=== PATIENT | female | born 2000 | race Caucasian/White ===

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

== ENCOUNTER 2018-04-11 21:36 | Emergency (ER) | END 2018-04-11 23:25 | disposition home or self-care (01) ==

== ENCOUNTER 2018-12-29 14:55 | Emergency (ER) | payer BC, MEDICAID ==
[~2018-12-29] VITALS: Ht 165.1 cm; Wt 76.0 kg
[~2018-12-29 14:55] MED LIST: HYDR-4011 PO; MAG-19 PO; ONDA4TAB14 PO; RANI150T35 PO
[2018-12-29 15:02] VITALS: BP 109/57; PULSE 100; RESP 16; Ht 165.1 cm; Wt 76.0 kg
[2018-12-29] MEDS ORDERED: ACETAMINOPHEN 500 MG TAB PO STA (15:55)
[2018-12-29] MEDS ORDERED: FLUT9.9S NASAL (15:59)
[2018-12-29] MEDS ORDERED: PSEU60TA2 PO (15:59)
[2018-12-29] MEDS ORDERED: SODI30SP2 NS (15:59)
[2018-12-29] MEDS ORDERED: PSEUDOEPHEDRINE 30 MG TAB PO ONE (16:00)
[2018-12-29] MEDS ORDERED: ACET500C5 PO (16:01)
--- NOTE | 2018-12-29 16:02 | ERD ---
ER Documentation Chief Complaint Chief Complaint COUGH, MYALGIAS, SINUS HEADACHE X1 WEEK HPI This is a 18-year-old female patient who presents to the emergency room with complaint of cough, phlegm, headache x1 week. Patient denies fevers, no nausea or vomiting. Patient does not smoke. No chronic medical problems. History and physical exam and plan of care discussion performed via project drilling engineer services ROS All systems reviewed and are negative except as per history of present illness. Medications Home Meds Active Scripts Acetaminophen* (Tylophen*) 500 Mg Capsule, 2 CAP PO Q8H PRN for PAIN AND OR ELEVATED TEMP, #20 CAP Prov:ROBERTO PAEZ NP 12/29/18 Sodium Chloride (Saline Nasal [place]) 30 Ml [place], 30 ML NS BID for 10 Days, #30 ML Prov:ROBERTO PAEZ NP 12/29/18 Pseudoephedrine Hcl* (Pseudoephedrine Hcl*) 60 Mg Tablet, 60 MG PO Q6 PRN for CONGESTION for 5 Days, TAB Prov:ROBERTO PAEZ NP 12/29/18 Fluticasone Propionate (Flonase Allergy Relief) 9.9 Ml [place].susp, 1 SPRAY NASAL BID for NASAL CONGESTION for 30 Days, #1 BOTTLE TO EACH NOSTRIL Prov:ROBERTO PAEZ NP 12/29/18 Ondansetron (Ondansetron Odt) 4 Mg Tab.rapdis, 4 MG PO Q6H PRN for NAUSEA AND/OR VOMITING, #10 TAB Prov:MOSHE ACEVEDO NP 04/11/18 Hydrocodone/Acetaminophen ([place] 5-325 Tablet) 1 Each Tablet, 1 TAB PO Q6H PRN for SEVERE PAIN LEVEL 7-10, #7 TAB Prov:MOSHE ACEVEDO NP 04/11/18 Ranitidine Hcl* (Zantac*) 150 Mg Tablet, 150 MG PO BID PRN for EPIGASTRIC PAIN, #30 TAB Prov:MOSHE ACEVEDO NP 04/11/18 Magaldrate/Simethicone* (Mylanta*) 355 Ml Susp, 30 ML PO QID PRN for GASTROINTESTINAL UPSET, #1 BOTTLE Prov:MOSHE ACEVEDO NP 04/11/18 Reported Medications [none] Unknown Strength No Conflict Check 04/11/18 Allergies Allergies: Coded Allergies: ibuprofen (Verified Allergy, Unknown, 04/11/18) PMhx/Soc History of Surgery: Yes (APPY) Hx Alcohol Use: No Hx Substance Use: No Hx Tobacco Use: No Smoking Status: Never smoker FmHx Family History: No diabetes, No coronary disease, No other Physical Exam Vitals Vital Signs Date Temp Pulse Resp B/P (MAP) Pulse Ox O2 O2 Flow FiO2 Time Delivery Rate 12/29/18 99.1 100 16 109/57 97 15:02 (74) Physical Exam Const: No acute distress Head: Atraumatic, right maxillary tenderness Eyes: Normal Conjunctiva, PERRL, EOMI ENT: Normal External Ears, TM clear BL, Nose with clear drainage. Pharynx pink, moist, no lesions, no petechiae, no exudate, tonsils +1. Neck: Full range of motion. No meningismus. No lymphadenopathy, no thyromegaly. Resp: Clear to auscultation bilaterally, no wheezing, no rales, no rhonchi. Cardio: Regular rate and rhythm, no murmurs Abd: Soft, non tender, non distended. Normal bowel sounds Skin: No petechiae or rashes Back: No midline or flank tenderness Ext: No cyanosis, or edema Neur: Awake and alert Psych: Normal Mood and Affect Results 24 hrs Current Medications Medications Dose Sig/Vanessa Start Time Status Last (Trade) Ordered Route PRN Stop Time Admin Dose Reason Admin 1,000 mg ONCE STAT 12/29/18 DC 12/29/18 Acetaminophen PO 15:55 16:10 (Tylenol 12/29/18 15:57 Tab) 60 mg ONCE ONCE 12/29/18 DC 12/29/18 Pseudoephedri PO 16:00 16:23 ne HCl 12/29/18 16:01 (Sudogest) Procedures/MDM PROCEDURES/MDM DIAGNOSTIC IMAGING: Not indicated. -Medications: Tylenol, Sudafed Patient tolerated medication well with no adverse reactions. Patient reported improvement in pain. MDM: This is a 18-year-old female patient who presents to the emergency room with upper URI type symptoms without evidence for bacterial infection such as fever, vomiting, colored sputum, severe pain. The patient's presentation is suggestive of a viral syndrome. The patient is clinically well appearing. Bacterial or other serious etiology are felt unlikely based upon available data. The patient clinically looks well, has normal work of breathing and normal abdominal and ENT exam. There are none of the following: meningeal signs, worrisome rash, evidence of serious ENT infection, respiratory distress, or evidence of serious bacterial infection by history and exam at this time. Patient was instructed on self care including use of Flonase, increased hydration, use of Sudafed as needed, Tylenol, increased rest. The patient appears appropriate for outpatient management with symptomatic treatment and primary provider follow-up. Patient instructedon red flags and warned to return immediately for worsening symptoms or any concerns. DISPOSITION and PLAN: RX: flonase, sudafed, nasal spray, tyenol The patient has been discharge home to follow-up with community physician. Departure Diagnosis: Primary Impression: Nasal congestion Condition: Stable Patient Instructions: Sinus Headaches Referrals: [facility] YOU HAVE RECEIVED A MEDICAL SCREENING EXAM AND THE RESULTS INDICATE THAT YOU DO NOT HAVE A CONDITION THAT REQUIRES URGENT TREATMENT IN THE EMERGENCY DEPARTMENT. FURTHER EVALUATION AND TREATMENT OF YOUR CONDITION CAN WAIT UNTIL YOU ARE SEEN IN YOUR DOCTORS OFFICE WITHIN THE NEXT 1-2 DAYS. IT IS YOUR RESPONSIBILITY TO MAKE AN APPOINTMENT FOR FOLOW-UP CARE. IF YOU HAVE A PRIMARY DOCTOR --you should call your primary doctor and schedule an appointment IF YOU DO NOT HAVE A PRIMARY DOCTOR YOU CAN CALL OUR PHYSICIAN REFERRAL HOTLINE AT IF YOU CAN NOT AFFORD TO SEE A PHYSICIAN YOU CAN CHOSE FROM THE FOLLOWING [facility] [address] [facility]. [facility] [address] [facility] [facility] [address] [facility] [facility] [address] [facility]. [facility] [address] [facility]. [facility]. [address] Additional Instructions: Thank you very much for allowing us to participate in your care. Your health and safety is our top priority at [facility]. Call your primary care doctor TOMORROW for an appointment during the next 2-4 days and bring all the information and medications prescribed. Have prescriptions filled and follow precisely the directions on the label. If the symptoms get worse and your provider is unavailable, return to the Emergency Department immediately. ROBERTO PAEZ NP Dec 29, 2018 16:02
== END 2018-12-29 17:44 | disposition left against medical advice (07) ==
LOC: FTE 14:55
DX: R09.81 Nasal congestion (principal)
CPT/HCPCS: 87070; 87880; Z7502; Z7610; 99283